=== PATIENT | male | born 1990 | race Two or more races ===

== ENCOUNTER 2025-01-31 01:21 | Emergency (ER) | payer OTHER ==
[~2025-01-31] VITALS: Ht 180.3 cm; Wt 83.9 kg
[2025-01-31 01:32] VITALS: BP 128/98; TEMP 98.9; O2SAT 100
== END 2025-01-31 03:59 ==
LOC: ER 01:23
DX: S01.512A Laceration without foreign body of oral cavity, initial encounter (principal); K13.79 Other lesions of oral mucosa; X58.XXXA Exposure to other specified factors, initial encounter; Y93.89 Activity, other specified; Y92.89 Other specified places as the place of occurrence of the external cause; Y99.9 Unspecified external cause status